=== PATIENT | female | born 1955 | race Hispanic/Latino ===

== ENCOUNTER 2024-08-10 16:59 | Emergency (ER) | payer MEDICARE, BC | END 2024-08-10 17:40 | disposition home or self-care (01) | LOC: CSHERS 16:59 | DX: S60.561A Insect bite (nonvenomous) of right hand, initial encounter (principal); E11.9 Type 2 diabetes mellitus without complications; I10 Essential (primary) hypertension; W57.XXXA Bitten or stung by nonvenomous insect and other nonvenomous arthropods, initial encounter | CPT/HCPCS: 99282 ==